=== PATIENT | male | born 1995 | race Caucasian/White ===

== ENCOUNTER 2017-09-08 17:29 | Emergency (ER) | payer OTHER ==
[~2017-09-08] VITALS: Ht 182.9 cm; Wt 86.2 kg
[2017-09-08] MEDS ORDERED: ACETAMINOPHEN-1 EAC1 PO (22:00)
== END 2017-09-08 22:19 | disposition home or self-care (01) ==
LOC: ED 17:29
DX: S93.402A Sprain of unspecified ligament of left ankle, initial encounter (principal); X50.9XXA Other and unspecified overexertion or strenuous movements or postures, initial encounter; Y93.67 Activity, basketball
CPT/HCPCS: 73610; 99283